=== PATIENT | female | born 1965 ===

== ENCOUNTER 2017-12-22 09:18 | Emergency (ER) | payer OTHER ==
[2017-12-22 09:26] VITALS: BMI 31.1
[2017-12-22] MEDS ORDERED: Sodium Chloride 0.9% 1,000 ML IV STA (09:44)
--- NOTE | 2017-12-22 10:07 | ED PDOC ---
HPI: Abdomen Time Seen by Provider: 12/22/17 09:24 Chief Complaint (Nursing): Abdominal Pain Chief Complaint (Provider): Abdominal Pain History Per: Patient History/Exam Limitations: no limitations Onset/Duration Of Symptoms: Days Current Symptoms Are (Timing): Intermittent Episodes Location Of Pain/Discomfort: RUQ, Epigastric Quality Of Discomfort: "Pain" Associated Symptoms: Nausea. denies: Fever, Vomiting, Diarrhea Additional Complaint(s): 52 year old female presents to the ED for an evaluation of right-sided epigastric abdominal pain. States the pain is associated with nausea and it has been intermittent for 5 months, however last night the pain became worse. Patient had an US done at [facility] ([facility] last month which presented no gallstone or gallbladder disease. Denies fever, diarrhea or vomiting. PMD: No Family Physician Past Medical History Reviewed: Historical Data, Nursing Documentation, Vital Signs Vital Signs: Last Vital Signs Temp 97.2 F L 12/22/17 09:25 Pulse 58 L 12/22/17 09:25 Resp BP 124/66 12/22/17 09:25 Pulse Ox 99 12/22/17 12:29 - Medical History PMH: Gastritis - Family History Family History: States: Unknown Family Hx - Social History Current smoker - smoking cessation education provided: No Alcohol: None Drugs: Denies - Immunization History Hx Tetanus Toxoid Vaccination: No Hx Influenza Vaccination: No - Home Medications Home Medications: Ambulatory Orders Medication Instructions Recorded Acetaminophen [Tylenol 325mg tab] 2 tab PO Q6 #50 tab 01/19/17 Nitrofurantoin Macrocrystals 1 cap PO BID #14 cap 01/19/17 [Macrobid] Phenazopyridine [Pyridium] 200 mg PO TID #15 tab 01/19/17 Pantoprazole Sodium [Protonix] 40 mg PO DAILY #30 tablet. 12/22/17 - Allergies Allergies/Adverse Reactions: Allergies Allergy/AdvReac Type Severity Reaction Status Date / Time No Known Allergies Allergy Verified 01/19/17 21:31 Review of Systems ROS Statement: Except As Marked, All Systems Reviewed And Found Negative Constitutional: Negative for: Fever Gastrointestinal: Positive for: Nausea, Abdominal Pain. Negative for: Vomiting , Diarrhea Genitourinary Female: Negative for: Dysuria Physical Exam - Reviewed Nursing Documentation Reviewed: Yes Vital Signs Reviewed: Yes - Physical Exam Appears: Positive for: Non-toxic, No Acute Distress Head Exam: Positive for: ATRAUMATIC, NORMAL INSPECTION, NORMOCEPHALIC Skin: Positive for: Normal Color, Warm, Dry Eye Exam: Positive for: Normal appearance, EOMI, PERRL ENT: Positive for: Normal ENT Inspection Neck: Positive for: Normal, Painless ROM, Supple. Negative for: Decreased ROM Cardiovascular/Chest: Positive for: Regular Rate, Rhythm. Negative for: Murmur Respiratory: Positive for: Normal Breath Sounds. Negative for: Decreased Breath Sounds, Wheezing, Respiratory Distress Gastrointestinal/Abdominal: Positive for: Tenderness (RUQ) Back: Positive for: Normal Inspection. Negative for: L CVA Tenderness, R CVA Tenderness Extremity: Positive for: Normal ROM. Negative for: Tenderness, Pedal Edema, Deformity Neurologic/Psych: Positive for: Alert, Oriented (x3). Negative for: Motor/ Sensory Deficits - Laboratory Results Result Diagrams: 12/22/17 10:05 12/22/17 10:05 - ECG O2 Sat by Pulse Oximetry: 99 (RA) Pulse Ox Interpretation: Normal Medical Decision Making Medical Decision Making: Time: 943 Initial Impression: abdominal pain Initial Plan: --ABD & Pelvis IV Contrast [CT] --CMP --Lipase --ED Urine --ED Urine Dipstick --CBC w/ Differential --Normal Saline 100mls/hr --Pepcid 20mg --Zofran Inj 4 mg --Reevaluation Time: 1217 PROCEDURE: CT Abdomen and Pelvis with contrast HISTORY: Abdominal pain COMPARISON: None. TECHNIQUE: CT scan of the abdomen and pelvis was performed after administration of intravenous contrast. Oral contrast was not administered. Coronal and sagittal reformatted images were obtained. Contrast dose: 95 cc Omnipaque 300 Radiation dose: Total exam DLP = 737.23 mGy-cm. This CT exam was performed using one or more of the following dose reduction techniques: Automated exposure control, adjustment of the mA and/or kV according to patient size, and/or use of iterative reconstruction technique. FINDINGS: LOWER THORAX: The visualized lungs are clear. LIVER: Normal in size with homogeneous enhancement. There is a 2.0 x 2.1 cm hypodense enhancing lesion in the anterior left hepatic lobe. No intrahepatic biliary ductal dilatation. GALLBLADDER AND BILE DUCTS: No calcified gallstones. PANCREAS: Normal in size with homogeneous enhancement. No gross lesion or ductal dilatation. SPLEEN: Normal in size and appearance. ADRENALS: No discrete nodule. KIDNEYS AND URETERS: Normal in size with homogeneous enhancement. No hydronephrosis. No solid mass. VASCULATURE: Unremarkable. No aortic aneurysm. BOWEL: The small bowel loops are normal in caliber. There is moderate amount of stool in the colon. No bowel dilatation or obstruction. APPENDIX: Normal appendix. PERITONEUM: No free fluid. No free air. LYMPH NODES: No enlarged lymph nodes. BLADDER: Well distended and normal in appearance. REPRODUCTIVE: The uterus is normal in size. BONES: No acute fracture. There is diffuse bone demineralization. OTHER FINDINGS: None. IMPRESSION: No acute abdominal or pelvic abnormality. Constipation. No evidence of bowel obstruction. Incompletely characterized 2.0 x 2.1 cm lesion in the anterior left hepatic lobe which may represent a hemangioma, solid lesion or complicated cyst. Please correlate with ultrasound examination. CT findings discussed with pt and GI f/u provided. Scribe Attestation: Documented by Rose Santo, acting as a scribe for Eligio Randall MD Provider Scribe Attestation: All medical record entries made by the Scribe were at my direction and personally dictated by me. I have reviewed the chart and agree that the record accurately reflects my personal performance of the history, physical exam, medical decision making, and the department course for this patient. I have also personally directed, reviewed, and agree with the discharge instructions and disposition. Disposition - Clinical Impression Clinical Impression: Gastritis - Patient ED Disposition Is Patient to be Admitted: No Counseled Patient/Family Regarding: Studies Performed, Diagnosis, Need For Followup, Rx Given - Disposition Referrals: FAMILY PROVIDER,NO [Primary Care Provider] - Huy Grijalva MD, PhD [Staff Provider] - Disposition: Routine/Home Disposition Time: 13:19 Condition: FAIR Prescriptions: Pantoprazole Sodium [Protonix] 40 mg PO DAILY #30 tablet. Instructions: Gastritis Forms: [facility] (Prydeinig) Print Language: TRISTANIAN
[2017-12-22 10:42] LABS: BASO % 0.6 % (0.0-2.0); EOS # 0.1 K/uL (0.0-0.7); EOS % 1.7 % (0.0-4.0); HEMOGLOBIN 12.7 g/dL (12.0-16.0); LYMPH # 2.6 K/uL (1.0-4.3); LYMPH % 52.8 % (20.0-40.0); MEAN CELL VOLUME 90.3 fl (81.0-99.0); MEAN CORPUSCULAR HEMOGLOBIN 30.3 pg (27.0-31.0); MEAN CORPUSCULAR HGB CONC 33.5 g/dL (33.0-37.0); MONO # 0.4 K/uL (0.0-0.8); MONO % 7.6 % (0.0-10.0); NEUT # 1.8 K/uL (1.8-7.0); NEUT % 37.3 % (50.0-75.0); NRBC % 0.2 % (0.0-0.0); RBC 4.21 Mil/uL (3.80-5.20); RED CELL DISTRIBUTION WIDTH 13.6 % (11.5-14.5); WHITE BLOOD COUNT 4.9 K/uL (4.8-10.8)
[2017-12-22 10:54] LABS: ALBUMIN 3.9 g/dL (3.5-5.0); ALT/SGPT 20 U/L (9-52); AST/SGOT 36 U/L (14-36); BLOOD UREA NITROGEN 14 mg/dl (7-17); CALCIUM 8.9 mg/dL (8.4-10.2); GFR AFRICAN-AMERICAN > 60; GFR NON-AFRICAN AMERICAN > 60; LIPASE 162 U/L (23-300)
[2017-12-22] MEDS ORDERED: Iohexol 300 100 ML IJ ONE (11:13)
[2017-12-22] MEDS ORDERED: Sodium Chloride 0.9% 50 ML IV ONE (11:14)
--- NOTE | 2017-12-22 12:19 | CT ---
Date of service: 12/22/2017 PROCEDURE: CT Abdomen and Pelvis with contrast HISTORY: Abdominal pain COMPARISON: None. TECHNIQUE: CT scan of the abdomen and pelvis was performed after administration of intravenous contrast. Oral contrast was not administered. Coronal and sagittal reformatted images were obtained. Contrast dose: 95 cc Omnipaque 300 Radiation dose: Total exam DLP = 737.23 mGy-cm. This CT exam was performed using one or more of the following dose reduction techniques: Automated exposure control, adjustment of the mA and/or kV according to patient size, and/or use of iterative reconstruction technique. FINDINGS: LOWER THORAX: The visualized lungs are clear. LIVER: Normal in size with homogeneous enhancement. There is a 2.0 x 2.1 cm hypodense enhancing lesion in the anterior left hepatic lobe. No intrahepatic biliary ductal dilatation. GALLBLADDER AND BILE DUCTS: No calcified gallstones. PANCREAS: Normal in size with homogeneous enhancement. No gross lesion or ductal dilatation. SPLEEN: Normal in size and appearance. ADRENALS: No discrete nodule. KIDNEYS AND URETERS: Normal in size with homogeneous enhancement. No hydronephrosis. No solid mass. VASCULATURE: Unremarkable. No aortic aneurysm. BOWEL: The small bowel loops are normal in caliber. There is moderate amount of stool in the colon. No bowel dilatation or obstruction. APPENDIX: Normal appendix. PERITONEUM: No free fluid. No free air. LYMPH NODES: No enlarged lymph nodes. BLADDER: Well distended and normal in appearance. REPRODUCTIVE: The uterus is normal in size. BONES: No acute fracture. There is diffuse bone demineralization. OTHER FINDINGS: None. IMPRESSION: No acute abdominal or pelvic abnormality. Constipation. No evidence of bowel obstruction. Incompletely characterized 2.0 x 2.1 cm lesion in the anterior left hepatic lobe which may represent a hemangioma, solid lesion or complicated cyst. Please correlate with ultrasound examination.
[2017-12-22 13:37] VITALS: BP 132/74; PULSE 68; RESP 18; TEMP 98.6; O2SAT 98
== END 2017-12-22 13:38 | disposition home or self-care (01) ==
LOC: SUPCPDRO 09:18 → H.ER 09:18
DX: K29.70 Gastritis, unspecified, without bleeding (principal)
CPT/HCPCS: 74177; 80053; 81025; 83690; 85025; 96374; 96375; 99285; J2405; J7030; Q9967

== ENCOUNTER 2018-08-01 14:48 | Emergency (ER) | payer OTHER ==
[2018-08-01 14:53] VITALS: BMI 30.2
[2018-08-01 14:54] VITALS: RESP 18; TEMP 98.6
--- NOTE | 2018-08-01 15:13 | ED PDOC ---
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 She has been taking Motrin with temporary relief for the pain - last use was yesterday night. Patient states symptoms started at home with no sudden exertion, trauma, or fall. She reports similar symptoms in the past which usually resolves spontaneously. Otherwise: (-) fever, (-) chills, (-) urinary complaints, (-) abdominal pain, (-) nausea, (-) vomiting, (-) diarrhea, (-) shortness of breath, (-) numbness/weakness, (-) incontinence, or (-) saddle anesthesia. LMP: 03/2018. PCP: none provided Past Medical History Reviewed: Historical Data, Nursing Documentation, Vital Signs Vital Signs: Last Vital Signs Temp 98.6 F 08/01/18 14:53 Pulse 66 08/01/18 14:53 Resp 18 08/01/18 14:53 BP 101/67 08/01/18 14:53 Pulse Ox 99 08/01/18 14:53 - Medical History PMH: Gastritis - Surgical History Surgical History: No Surg Hx - Family History Family History: States: Unknown Family Hx - Social History Current smoker - smoking cessation education provided: No - Home Medications Home Medications: Ambulatory Orders Medication Instructions Recorded Acetaminophen [Tylenol 325mg tab] 2 tab PO Q6 #50 tab 01/19/17 Nitrofurantoin Macrocrystals 1 cap PO BID #14 cap 01/19/17 [Macrobid] Phenazopyridine [Pyridium] 200 mg PO TID #15 tab 01/19/17 Pantoprazole Sodium [Protonix] 40 mg PO DAILY #30 tablet. 12/22/17 Cyclobenzaprine [Cyclobenzaprine 10 mg PO Q8 PRN #12 tab 08/01/18 HCl] Naproxen 500 mg PO BID PRN #20 tab 08/01/18 - Allergies Allergies/Adverse Reactions: Allergies Allergy/AdvReac Type Severity Reaction Status Date / Time No Known Allergies Allergy Verified 08/01/18 14:59 Review of Systems ROS Statement: Except As Marked, All Systems Reviewed And Found Negative Constitutional: Negative for: Fever, Chills Respiratory: Negative for: Shortness of Breath Gastrointestinal: Negative for: Nausea, Vomiting, Abdominal Pain, Diarrhea Genitourinary Female: Negative for: Dysuria, Incontinence, Hematuria Musculoskeletal: Positive for: Back Pain (lower right). Negative for: Other (s addle anesthesia) Physical Exam - Reviewed Nursing Documentation Reviewed: Yes Vital Signs Reviewed: Yes - Physical Exam Comments: GENERAL APPEARANCE: Patient is awake, alert, oriented x 3, in no acute distress. Resting comfortably in exam chair. SKIN: Warm, dry; (-) cyanosis. EYES: (-) conjunctival injection ENMT: Mucous membranes moist. Airway patent, (-) stridor. NECK: Supple, FROM CHEST AND RESPIRATORY: (-) rales, (-) rhonchi, (-) wheezes; breath sounds equal bilaterally. Respirations even and nonlabored, speaking in full sentences. HEART AND CARDIOVASCULAR: (-) irregularity ABDOMEN AND GI: Soft; (-) tenderness BACK: (+) right-sided paralumbar tenderness (-) direct bony tenderness, (-) deformity. Straight leg raising (-) bilaterally. (-) CVA tenderness bilaterally. EXTREMITIES: (-) deformity NEURO AND PSYCH: Mental status as above. Intact sensation bilaterally; normal strength in extension of the knees, plantar and dorsiflexion of the toes. Gait: steady. Speech: clear. (-) facial asymmetry - ECG O2 Sat by Pulse Oximetry: 99 (RA) Pulse Ox Interpretation: Normal Medical Decision Making Medical Decision Making: Initial Impression: Lower back pain. muscle spasm vs. lumbar strain. Initial Plan: * Flexeril 10mg PO (not driving home) * Toradol 30 mg IM * Re-evaluation 1610 On re-evaluation, patient reports resolution of symptoms and is requesting discharge. On exam, patient remains AAOx3, in no acute distress. Vitals stable. Lab/Diagnostic results d/w the patient in great detail. Diagnosis of acute low back pain, lumbar strain vs muscle spasm d/w the patient. Based on history, exam and diagnostic results, plan will be for outpatient follow up. Patient instructed to follow-up with pmd / referral provided / the clinic in 1- 2 days without fail. Advised to take medication as prescribed. Return to the emergency room at any time for any new or worsening symptoms. Patient states she fully agrees with and understands discharge instructions. States that she agrees with the plan and disposition. Verbalized and repeated discharge instructions and plan. I have given the patient opportunity to ask any additional questions. --- Scribe Attestation: Documented by Elaina López, acting as a scribe for Mildred Bliss PA-C. Provider Scribe Attestation: All medical record entries made by the Scribe were at my direction and personally dictated by me. I have reviewed the chart and agree that the record accurately reflects my personal performance of the history, physical exam, medical decision making, and the department course for this patient. I have also personally directed, reviewed, and agree with the discharge instructions and disposition. Disposition - Clinical Impression Clinical Impression: Acute back pain, Low back pain, Lumbar strain, Muscle spasm of back - Patient ED Disposition Is Patient to be Admitted: No Counseled Patient/Family Regarding: Studies Performed, Diagnosis, Need For Followup, Rx Given - Disposition Referrals: [facility] [Outside] Disposition: Routine/Home Disposition Time: 16:10 Condition: STABLE Additional Instructions: La atencin mdica de emergencia que recibi hoy se dirigi a anson sntomas agudos. Si le recetaron algn medicamento, llnelo y tmelo segn las indicaciones. Los sntomas pueden tardar varios rider en resolverse. Regrese al Departamento de Emergencias si anson sntomas empeoran, no mejoran o si tiene otros problemas. Comunquese con celeste mdico dentro de 2 rider para chente nueva evaluacin y hung un seguimiento o llame a richard de los mdicos / clnicas a los que osman sido referido y que figuran en el formulario de Informacin de visita al paciente que se incluye en celeste paquete de kevin. Lleve todos los documentos que le entregaron al momento del kevin junto con todos los medicamentos que est tomando para celeste visita de seguimiento. Nuestro tratamiento no puede reemplazar la atencin mdica continua por parte de un proveedor de atencin primaria (PCP) fuera del departamento de emergencias. Prescriptions: Cyclobenzaprine [Cyclobenzaprine HCl] 10 mg PO Q8 PRN #12 tab PRN Reason: Muscle Spasm Naproxen 500 mg PO BID PRN #20 tab PRN Reason: Pain, Moderate (4-7) Instructions: Low Back Pain in Adults, Low Back Pain (DC), Muscle Spasms (DC), Lumbar Muscle Strain Forms: [facility] (Turkish) Print Language: MALTESE - POA Present On Arrival: None
[2018-08-01 16:31] VITALS: BP 113/70; PULSE 71
[2018-08-01 17:44] VITALS: O2SAT 99
== END 2018-08-01 16:25 | disposition home or self-care (01) ==
LOC: H.ER 14:48
DX: M54.5 Low back pain (principal); M62.830 Muscle spasm of back
CPT/HCPCS: 96372; 99283; J1885